=== PATIENT | male | born 1985 | race Two or more races ===

== ENCOUNTER 2019-11-06 01:50 | Emergency (ER) | payer OTHER ==
[~2019-11-06] VITALS: Ht 160 cm; Wt 59.0 kg
[2019-11-06 01:51] VITALS: BP 159/102
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
--- NOTE | 2019-11-06 08:12 | NUR ---
late entry due to downtime. Patient discharged to home in stable condition. Written and verbal after care instructions given. Patient verbalizes understanding of instruction.
== END 2019-11-06 08:12 | disposition home or self-care (01) ==
LOC: ER 01:51
DX: F14.90 Cocaine use, unspecified, uncomplicated (principal)